=== PATIENT | male | born 2000 | race Caucasian/White ===

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

== ENCOUNTER 2018-06-22 22:35 | Emergency (ER) | payer OTHER ==
[~2018-06-22] VITALS: Ht 170.1 cm; Wt 81.6 kg
[~2018-06-22 22:35] MED LIST changes: +CORTISPORIN SUS10 ML OT
[2018-06-23 00:01] LABS: HEMATOCRIT 46.2 % (42.0-52.0); MEAN CELL VOLUME 88.7 fl (80.0-94.0); MEAN CORPUSCULAR HGB 30.7 pg (27.0-31.0); MEAN CORPUSCULAR HGB CONC 34.6 g/dl (33.0-37.0); PLATELET COUNT AUTOMATED 254 10*3/uL (130-400); RED BLOOD COUNT 5.21 10*6/uL (4.50-5.90); RED CELL DISTRI WIDTH 11.8 % (0-14.5); WHITE BLOOD COUNT 7.9 10*3/uL (4.8-10.8)
[2018-06-23 00:16] LABS: ALBUMIN 3.4 gm/dl (3.1-4.5); ALKALINE PHOSPHATASE 102 U/L (45-117); BUN 6 mg/dl (7-24); CHLORIDE 103 mmol/L (98-107); CREATININE 0.97 mg/dL (0.70-1.30); POTASSIUM 4.1 mmol/L (3.5-5.1); SGOT/AST 13 IU/L (3-35); SGPT/ALT 22 U/L (12-78); SODIUM 139 mmol/L (136-145); TOTAL PROTEIN 7.5 gm/dL (6.4-8.2)
[2018-06-23 00:21] LABS: BASOPHILS 1 % (0-1); PLATELET SUFFICIENCY NORMAL (NORMAL); TOTAL CELLS COUNTED 100 #CELLS
== END 2018-06-23 01:22 | disposition home or self-care (01) ==
LOC: ED 22:35
PROVIDERS: Emergency Medicine
DX: R13.14 Dysphagia, pharyngoesophageal phase (principal); F84.0 Autistic disorder

== ENCOUNTER 2018-10-28 11:31 | Emergency (ER) | payer OTHER ==
[~2018-10-28] VITALS: Wt 81.6 kg
[2018-10-28 11:49] LABS: BASO % 0.4 % (0.0-1.0); HEMATOCRIT 53.8 % (42.0-52.0); HEMOGLOBIN 18.4 g/dl (14.0-18.0); LYMPH # 0.5 10*3/uL (1.3-4.4); LYMPH % 5.6 % (27.0-41.0); MEAN CELL VOLUME 89.5 fl (80.0-94.0); MEAN CORPUSCULAR HGB 30.6 pg (27.0-31.0); MEAN CORPUSCULAR HGB CONC 34.2 g/dl (33.0-37.0); MEAN PLATELET VOLUME 10.3 fl (9.6-12.3); MONO # 0.5 10*3/uL (0.1-1.0); MONO % 6.3 % (3.0-9.0); NEUT # 7.3 10*3/uL (2.3-7.9); NEUT % 87.5 % (47.0-73.0); PLATELET COUNT AUTOMATED 228 10*3/uL (130-400); RED BLOOD COUNT 6.01 10*6/uL (4.50-5.90); RED CELL DISTRI WIDTH 12.1 % (0-14.5); WHITE BLOOD COUNT 8.4 10*3/uL (4.8-10.8)
[2018-10-28 11:57] LABS: INTERNATIONAL NORM RATIO 1.1 (2.0-3.5)
[2018-10-28 12:05] LABS: ALBUMIN 4.1 gm/dl (3.1-4.5); ALKALINE PHOSPHATASE 103 U/L (45-117); BUN 16 mg/dl (7-24); CHLORIDE 103 mmol/L (98-107); CREATININE 1.47 mg/dL (0.70-1.30); LIPASE 54 U/L (73-393); SGOT/AST 12 IU/L (3-35); SGPT/ALT 23 U/L (12-78); SODIUM 138 mmol/L (136-145); TOTAL PROTEIN 8.6 gm/dL (6.4-8.2)
[2018-10-28 13:16] LABS: BILIRUBIN NEGATIVE (NEGATIVE); BLOOD TRACE-INTACT (NEGATIVE); CLARITY CLEAR (CLEAR); COLOR YELLOW (YELLOW); GLUCOSE NEGATIVE (NEGATIVE); KETONE NEGATIVE (NEGATIVE); LEUKO ESTERASE NEGATIVE (NEGATIVE); NITRITE NEGATIVE (NEGATIVE); SPECIFIC GRAVITY >= 1.030 (1.005-1.030); UROBILINOGEN 0.2 E.U./dl (0.2-1.0)
[2018-10-28 13:23] LABS: MUCOUS 1+
[2018-10-28] MEDS ORDERED: ANUSOL-HC25 MG R (13:42)
[2018-10-28] MEDS ORDERED: ZOFRAN4 MG PO (13:42)
== END 2018-10-28 13:46 | disposition home or self-care (01) ==
LOC: ED 11:31
PROVIDERS: Nurse Practitioner Family
DX: K52.9 Noninfective gastroenteritis and colitis, unspecified (principal); K64.4 Residual hemorrhoidal skin tags

== ENCOUNTER 2019-09-18 16:42 | Emergency (ER) | payer OTHER ==
[~2019-09-18] VITALS: Wt 68.0 kg
[~2019-09-18 16:42] MED LIST changes: +ANUSOL-HC25 MG R; +ZOFRAN4 MG PO
== END 2019-09-18 19:11 | disposition home or self-care (01) ==
LOC: ED 16:42
DX: S50.02XA Contusion of left elbow, initial encounter (principal); X58.XXXA Exposure to other specified factors, initial encounter; Y93.72 Activity, wrestling; Y92.89 Other specified places as the place of occurrence of the external cause; Y99.8 Other external cause status

== ENCOUNTER → 2019-11-13 | Outpatient (CLI) | payer BC, OTHER ==
[2019-11-13 11:30] LABS: HEMATOCRIT 49.7 % (42.0-52.0); MEAN CELL VOLUME 88.9 fl (80.0-94.0); MEAN CORPUSCULAR HGB 30.4 pg (27.0-31.0); MEAN CORPUSCULAR HGB CONC 34.2 g/dl (33.0-37.0); MEAN PLATELET VOLUME 9.9 fl (9.6-12.3); RED BLOOD COUNT 5.59 10*6/uL (4.50-5.90); RED CELL DISTRI WIDTH 11.7 % (0-14.5); WHITE BLOOD COUNT 5.4 10*3/uL (4.8-10.8)
[2019-11-13 12:11] LABS: ALBUMIN 4.1 gm/dl (3.1-4.5); ALKALINE PHOSPHATASE 96 U/L (45-117); BUN 9 mg/dl (7-24); CHLORIDE 107 mmol/L (98-107); CHOLESTEROL 113 mg/dL (<200); CREATININE 0.95 mg/dL (0.70-1.30); HDL CHOLESTEROL 51 mg/dl (40-60); LDL CHOLESTEROL 47 mg/dL (9-159); POTASSIUM 3.8 mmol/L (3.5-5.1); SGOT/AST 10 IU/L (3-35); SGPT/ALT 24 U/L (12-78); SODIUM 140 mmol/L (136-145); TOTAL PROTEIN 7.8 gm/dL (6.4-8.2); TRIGLYCERIDES 77 mg/dl (<150); VLDL CHOLESTEROL 15 mg/dL (6-40)
[2019-11-14 07:04] LABS: HEPATITIS B SURFACE AG Negative (Negative); HEPATITIS C VIRUS ANTIBODY <0.1 s/co (0.0-0.9)
== END | disposition home or self-care (01) ==
LOC: LAB 10:59
PROVIDERS: Family Medicine
DX: Z13.220 Encounter for screening for lipoid disorders (principal); R30.0 Dysuria; E55.9 Vitamin D deficiency, unspecified; N34.2 Other urethritis

== ENCOUNTER 2020-11-03 22:15 | Emergency (ER) | payer BC, OTHER ==
[~2020-11-03] VITALS: Ht 177.8 cm; Wt 94.8 kg
== END 2020-11-04 01:00 | disposition home or self-care (01) ==
LOC: ED 22:15
DX: F12.929 Cannabis use, unspecified with intoxication, unspecified (principal); F31.9 Bipolar disorder, unspecified

== ENCOUNTER → 2020-11-29 | Outpatient (CLI) | payer OTHER ==
[2020-11-29 11:30] LABS: HEMATOCRIT 52.8 % (42.0-52.0); MEAN CELL VOLUME 92.8 fl (80.0-94.0); MEAN CORPUSCULAR HGB 30.9 pg (27.0-31.0); MEAN CORPUSCULAR HGB CONC 33.3 g/dl (33.0-37.0); RED BLOOD COUNT 5.69 10*6/uL (4.50-5.90); RED CELL DISTRI WIDTH 11.9 % (0-14.5); WHITE BLOOD COUNT 7.3 10*3/uL (4.8-10.8)
[2020-11-29 11:59] LABS: ALBUMIN 3.9 gm/dl (3.1-4.5); ALKALINE PHOSPHATASE 113 U/L (45-117); BUN 10 mg/dl (7-24); CHLORIDE 108 mmol/L (98-107); CHOLESTEROL 136 mg/dL (<200); CREATININE 1.01 mg/dL (0.70-1.30); HDL CHOLESTEROL 62 mg/dl (40-60); LDL CHOLESTEROL 42 mg/dL (9-159); POTASSIUM 4.1 mmol/L (3.5-5.1); SGOT/AST 16 IU/L (3-35); SGPT/ALT 35 U/L (12-78); SODIUM 144 mmol/L (136-145); TOTAL PROTEIN 7.9 gm/dL (6.4-8.2); TRIGLYCERIDES 158 mg/dl (<150); VLDL CHOLESTEROL 32 mg/dL (6-40)
[2020-11-29 12:33] LABS: VITAMIN D, 25-HYDROXY 9.8 ng/mL (30-100)
== END | disposition home or self-care (01) ==
LOC: LAB 11:09
PROVIDERS: ATTEND Family Medicine
DX: E74.00 Glycogen storage disease, unspecified (principal); F41.1 Generalized anxiety disorder; E55.9 Vitamin D deficiency, unspecified; R53.83 Other fatigue; F32.9 Major depressive disorder, single episode, unspecified; R45.86 Emotional lability

== ENCOUNTER 2021-06-13 11:50 | Emergency (ER) | payer MEDICARE, MEDICAID ==
[2021-06-13] MEDS ORDERED: IBUPROFEN600 MG PO (14:32)
[2021-06-13] MEDS ORDERED: AUGMENTIN 875875 MG PO (14:32)
== END 2021-06-13 15:36 | disposition home or self-care (01) ==
LOC: ED
DX: S02.31XA Fracture of orbital floor, right side, initial encounter for closed fracture (principal); Y08.89XA Assault by other specified means, initial encounter; Y93.89 Activity, other specified; Y92.89 Other specified places as the place of occurrence of the external cause; Y99.8 Other external cause status

== ENCOUNTER 2022-05-01 21:56 | Emergency (ER) | payer MEDICARE, MEDICAID ==
[~2022-05-01 21:56] MED LIST changes: +AUGMENTIN 875875 MG PO; +IBUPROFEN600 MG PO
[2022-05-01 23:16] LABS: URINE AMPHETAMINES < 1000 (1000ng/ml); URINE BARBITURATES < 200 (200ng/ml); URINE BENZODIAZEPINES < 200 (200ng/ml); URINE CANNABINOIDS (THC) < 50 (50ng/ml); URINE COCAINE < 300 (300ng/ml); URINE METHADONE < 300 (300ng/ml); URINE OPIATES < 300 (300ng/ml)
[2022-05-01 23:17] LABS: URINE PHENCYCLIDINE < 25 (25ng/ml)
== END 2022-05-02 00:05 | disposition home or self-care (01) ==
LOC: ED 21:56
PROVIDERS: Emergency Medicine
DX: F41.9 Anxiety disorder, unspecified (principal); R20.0 Anesthesia of skin; F12.90 Cannabis use, unspecified, uncomplicated; F32.A Depression, unspecified; Z79.2 Long term (current) use of antibiotics; Z79.899 Other long term (current) drug therapy

== ENCOUNTER 2022-06-05 23:57 | Emergency (ER) | payer MEDICARE, MEDICAID ==
[2022-06-06] MEDS ORDERED: AMOX-CLAV 875-1 EACH PO (01:54)
== END 2022-06-06 02:05 | disposition home or self-care (01) ==
LOC: ED 23:57
DX: U07.1 COVID-19 (principal); J01.00 Acute maxillary sinusitis, unspecified; F17.200 Nicotine dependence, unspecified, uncomplicated